=== PATIENT | female | born 1940 | race Two or more races ===

== ENCOUNTER 2017-06-04 14:18 | Outpatient (CLI) | payer OTHER | END 2017-06-04 14:25 | disposition home or self-care (01) | LOC: RAD 14:18 | DX: I11.9 Hypertensive heart disease without heart failure (principal) ==

== ENCOUNTER 2017-06-18 05:30 | Day surgery (SDC) | payer OTHER ==
[~2017-06-18 05:30] MED LIST: NUERIN SL; ZOCOR20 MG PO
[2017-06-18] MEDS ORDERED: PERCOCET 5-3251 EACH PO (11:19)
== END 2017-06-18 16:15 | disposition home or self-care (01) ==
LOC: CIR.AMB 05:30
DX: E21.0 Primary hyperparathyroidism (principal); D35.1 Benign neoplasm of parathyroid gland

== ENCOUNTER 2017-07-30 07:21 | Outpatient (CLI) | payer OTHER ==
[~2017-07-30 07:21] MED LIST changes: +PERCOCET 5-3251 EACH PO
== END 2017-07-30 07:37 | disposition home or self-care (01) ==
LOC: LAB 07:21
DX: E21.0 Primary hyperparathyroidism (principal); D35.1 Benign neoplasm of parathyroid gland; M81.0 Age-related osteoporosis without current pathological fracture; E83.52 Hypercalcemia; D72.818 Other decreased white blood cell count; D51.3 Other dietary vitamin B12 deficiency anemia; D50.8 Other iron deficiency anemias; J45.20 Mild intermittent asthma, uncomplicated; B96.81 Helicobacter pylori [H. pylori] as the cause of diseases classified elsewhere; D51.8 Other vitamin B12 deficiency anemias; I10 Essential (primary) hypertension; E55.9 Vitamin D deficiency, unspecified; K90.89 Other intestinal malabsorption

== ENCOUNTER 2018-01-12 13:51 | Outpatient (CLI) | payer OTHER | END 2018-01-12 14:10 | disposition home or self-care (01) | LOC: MAMO-SONO 13:51 | DX: Z12.31 Encounter for screening mammogram for malignant neoplasm of breast (principal); Z87.898 Personal history of other specified conditions; N64.89 Other specified disorders of breast; N64.59 Other signs and symptoms in breast ==

== ENCOUNTER 2018-07-24 14:22 | Outpatient (CLI) | payer OTHER | END 2018-07-24 15:00 | disposition home or self-care (01) | LOC: NUCLEAR 14:22 | DX: M81.0 Age-related osteoporosis without current pathological fracture (principal); Z13.820 Encounter for screening for osteoporosis ==

== ENCOUNTER 2019-01-25 08:02 | Outpatient (CLI) | payer OTHER | END 2019-01-25 08:04 | disposition home or self-care (01) | LOC: MAMO-SONO 08:02 | DX: N64.59 Other signs and symptoms in breast (principal); N64.89 Other specified disorders of breast; N63.10 Unspecified lump in the right breast, unspecified quadrant; N63.20 Unspecified lump in the left breast, unspecified quadrant; I11.9 Hypertensive heart disease without heart failure; R06.02 Shortness of breath; Z12.31 Encounter for screening mammogram for malignant neoplasm of breast; Z87.898 Personal history of other specified conditions ==

== ENCOUNTER 2019-11-09 14:01 | Outpatient (CLI) | payer OTHER | END 2019-11-09 14:05 | disposition home or self-care (01) | LOC: NUCLEAR 14:01 | PROVIDERS: ATTEND Internal Medicine | DX: M81.0 Age-related osteoporosis without current pathological fracture (principal) ==

== ENCOUNTER 2020-03-15 07:29 | Outpatient (CLI) | payer OTHER | END 2020-03-15 07:37 | disposition home or self-care (01) | LOC: MAMO-SONO 07:29 | PROVIDERS: ATTEND Internal Medicine Geriatric Medicine | DX: Z12.31 Encounter for screening mammogram for malignant neoplasm of breast (principal); N60.12 Diffuse cystic mastopathy of left breast; N60.11 Diffuse cystic mastopathy of right breast ==

== ENCOUNTER → 2022-02-06 10:58 | Outpatient (CLI) | payer OTHER | END | disposition home or self-care (01) | LOC: NUCLEAR 10:58 | PROVIDERS: ATTEND Internal Medicine | DX: M81.0 Age-related osteoporosis without current pathological fracture (principal) ==

== ENCOUNTER 2022-02-08 10:19 | Emergency (ER) | payer OTHER ==
[~2022-02-08] VITALS: Ht 154.9 cm; Wt 65.8 kg
== END 2022-02-08 16:54 | disposition home or self-care (01) ==
LOC: ER 10:19
DX: S30.0XXA Contusion of lower back and pelvis, initial encounter (principal); S24.109A Unspecified injury at unspecified level of thoracic spinal cord, initial encounter; W18.30XA Fall on same level, unspecified, initial encounter; Y93.9 Activity, unspecified; Y92.017 Garden or yard in single-family (private) house as the place of occurrence of the external cause; Y99.9 Unspecified external cause status